=== PATIENT | male | born 1945 | race Caucasian/White ===

== ENCOUNTER 2016-10-19 07:23 | Outpatient (CLI) | payer MEDICARE, OTHER ==
[2016-10-19 10:27] LABS: BASOPHILS # (AUTO) 0.1 10^3/uL (0.0-0.1); BASOPHILS % (AUTO) 1.3 %; EOSINOPHILS # (AUTO) 0.2 10^3/uL (0.0-0.7); EOSINOPHILS % (AUTO) 3.1 %; HCT - HEMATOCRIT 41.6 % (42.0-52.0); HGB - HEMOGLOBIN 14.2 g/dL (14.0-18.0); LYMPHOCYTES # (AUTO) 1.6 10^3/uL (1.5-3.5); LYMPHOCYTES % (AUTO) 26.1 %; MEAN CORPUSCULAR HEMOGLOBIN 30.1 pg (27.0-31.0); MEAN CORPUSCULAR VOLUME 88.4 fL (80.0-94.0); MEAN PLATELET VOLUME 10.4 fL (7.4-11.4); MONOCYTES # (AUTO) 0.6 10^3/uL (0.0-1.0); MONOCYTES % (AUTO) 10.4 %; NEUTROPHILS # (AUTO) 3.5 10^3/uL (1.5-6.6); NEUTROPHILS % (AUTO) 59.1 %; NUCLEATED RED BLOOD CELLS AUTO 0.1 /100WBC; RED BLOOD COUNT 4.71 10^6/uL (4.70-6.10)
[2016-10-19 10:34] LABS: ALBUMIN/GLOBULIN RATIO 1.5 (1.0-2.2); BILIRUBIN,TOTAL 0.8 mg/dL (0.2-1.0); BUN - BLOOD UREA NITROGEN 18 mg/dL (6-20); CALCIUM 9.4 mg/dL (8.5-10.3); CARBON DIOXIDE - CO2 29 mmol/L (21-32); CHLORIDE 102 mmol/L (101-111); CHOL/HDL RATIO 3.8 (<5.0); CHOLESTEROL 164 mg/dL; CREATININE 1.1 mg/dL (0.6-1.2); GFR - MDRD 66 (>89); GLUCOSE 107 mg/dL (70-100); HDL CHOLESTEROL 43 mg/dL; LDL/HDL RATIO 1.8 (<3.6); POTASSIUM 4.2 mmol/L (3.5-5.0); SODIUM 138 mmol/L (135-145); TRIGLYCERIDES 219 mg/dL; URIC ACID 7.3 mg/dL (2.6-7.2); VLDL CHOLESTEROL 44 mg/dL
== END 2016-10-19 07:24 | disposition home or self-care (01) ==
LOC: LAB.F 07:23
PROVIDERS: ATTEND Family Medicine
DX: E78.5 Hyperlipidemia, unspecified (principal); M10.9 Gout, unspecified; J34.89 Other specified disorders of nose and nasal sinuses
CPT/HCPCS: 36415; 80053; 80061; 84550; 85025

== ENCOUNTER 2017-04-06 07:29 | Outpatient (CLI) | payer MEDICARE, OTHER ==
[2017-04-06 10:58] LABS: BILIRUBIN,URINE NEGATIVE (NEGATIVE); GLUCOSE, URINE (UA) NEGATIVE (NEGATIVE); KETONES,URINE (UA) NEGATIVE (NEGATIVE); LEUKOCYTE ESTERASE, URINE NEGATIVE (NEGATIVE); NITRITE,URINE NEGATIVE (NEGATIVE); OCCULT BLOOD,URINE NEGATIVE (NEGATIVE); PH,URINE 6.5 PH (5.0-7.5); PROTEIN,URINE NEGATIVE (NEGATIVE); UROBILINOGEN,URINE 0.2 (NORMAL) E.U./dL (NORMAL)
[2017-04-06 11:00] LABS: CLARITY,URINE CLEAR (CLEAR)
[2017-04-06 11:10] LABS: ALBUMIN 4.1 g/dL (3.2-5.5); ALBUMIN/GLOBULIN RATIO 1.5 (1.0-2.2); ALKALINE PHOSPHATASE 39 IU/L (42-121); ALT ALANINE AMINOTRANSFERASE 80 IU/L (10-60); AST ASPARTATE AMINOTRANSFERASE 39 IU/L (10-42); BUN - BLOOD UREA NITROGEN 22 mg/dL (6-20); CALCIUM 9.2 mg/dL (8.5-10.3); CARBON DIOXIDE - CO2 27 mmol/L (21-32); CHLORIDE 99 mmol/L (101-111); CHOLESTEROL 190 mg/dL; CREATININE 1.3 mg/dL (0.6-1.2); GFR - MDRD 54 (>89); GLUCOSE 105 mg/dL (70-100); HDL CHOLESTEROL 38 mg/dL; LDL CHOLESTEROL,CALCULATED 90 mg/dL; LDL/HDL RATIO 2.4 (<3.6); SODIUM 136 mmol/L (135-145); TOTAL PROTEIN 6.8 g/dL (6.7-8.2); VLDL CHOLESTEROL 62 mg/dL
[2017-04-06 11:20] LABS: HB2 TOTAL 15.2 g/dL; HEMOGLOBIN A1C 0.57 g/dL; HEMOGLOBIN A1C % 5.6 % (4.6-6.2)
[2017-04-06 11:29] LABS: BACTERIA,URINE Rare /HPF (None Seen); RBC,URINE 0-5 /HPF (0-5); SQUAMOUS EPITHELIAL CELL,UR NONE SEEN (<= Few)
== END 2017-04-06 07:30 | disposition home or self-care (01) ==
LOC: LAB.F 07:29
PROVIDERS: ATTEND Family Medicine
DX: R10.9 Unspecified abdominal pain (principal); R73.01 Impaired fasting glucose; I10 Essential (primary) hypertension; Z12.5 Encounter for screening for malignant neoplasm of prostate; E78.5 Hyperlipidemia, unspecified; I25.10 Atherosclerotic heart disease of native coronary artery without angina pectoris; M10.9 Gout, unspecified
CPT/HCPCS: 36415; 80053; 80061; 81001; 83036; G0103; 83721; 84153

== ENCOUNTER 2017-05-14 06:18 | Emergency (ER) | payer MEDICARE, OTHER ==
--- NOTE | 2017-05-14 06:24 | ED Physician Documentation ---
PD HPI URI - History of Present Illness Similar symptoms before: Other (2 years ago had similar illness improved with unnamed antibiotic.) Recently seen: Other (last seen by [place] about one month ago for routine follow up.) <Cruz Easton - Last Filed: 05/14/17 08:09> - History obtained from History obtained from: Patient - History of Present Illness Timing - onset: How many days ago (4) Timing details: Gradual onset, Still present Associated symptoms: Fever, Nasal congestion, Rhinorrhea, Sore throat, Productive cough Contributing factors: No: Sick contact Similar symptoms before: Has not had sx before Recently seen: Not recently seen <Austen Sweeney - Last Filed: 05/16/17 06:22> - Stated complaint Stated Complaint: SORE THROAT/COUGH - Additional information Additional information: Patient is a 71 year old male with a history of htn who is presenting to the emergency department for fever, cough and sore throat. Patient states that his symptoms have been going on for the last 4 days or so. patient states that he has had a runny nose and sore throat. Patient felt ok yesterday but the symptoms came back today. Patient states tht he felt warm but he did not take his temperature. (Austen Sweeney) Review of Systems Constitutional: reports: Fever, Chills, Myalgias Eyes: reports: Reviewed and negative Ears: reports: Reviewed and negative Nose: reports: Rhinorrhea / runny nose, Congestion Throat: denies: Oral lesions / sores Cardiac: denies: Chest pain / pressure, Palpitations Respiratory: reports: Cough. denies: Dyspnea, Wheezing GI: denies: Nausea, Vomiting : reports: Reviewed and negative Skin: denies: Rash, Lesions Neurologic: denies: Generalized weakness, Focal weakness Immunocompromised: denies: Immunocompromised <Austen Sweeney - Last Filed: 05/16/17 06:22> PD PAST MEDICAL HISTORY <Cruz Easton - Last Filed: 05/14/17 08:09> - Past Medical History Cardiovascular: Hypertension, High cholesterol, Coronary artery disease Musculoskeletal: Gout - Past Surgical History Past Surgical History: Yes General: Colonoscopy Cardiovascular: Coronary stent HEENT: Cataracts - Social History Does the pt smoke?: No Smoking Status: Never smoker Does the pt drink ETOH?: Yes Does the pt have substance abuse?: No - Immunizations Immunizations are current?: Yes - POLST Patient has POLST: No <Austen Sweeney - Last Filed: 05/16/17 06:22> - Present Medications Home Medications: Ambulatory Orders Medication Instructions Recorded Confirmed Aspirin [Aspir 81] 81 mg PO DAILY 09/19/13 10/06/14 Losartan [Cozaar] 100 mg PO DAILY 09/19/13 10/06/14 hydroCHLOROthiazide 25 mg PO DAILY 09/19/13 10/06/14 [Hydrochlorothiazide] Colchicine [Colcrys] 0.6 mg PO Q2H PRN #8 tablet 10/06/14 Multivitamin [Multivitamins] 1 cap DAILY 10/06/14 10/06/14 [place]-3 Fatty Acids/Fish Oil [Fish 1 tab BID 10/06/14 10/06/14 Oil 1,000 mg Capsule] Metoprolol Tartrate 100 mg DAILY 11/20/15 11/20/15 Methocarbamol [Robaxin] 500 mg PO Q6H PRN #25 tablet 11/21/15 Naproxen 375 mg PO BID #20 tablet 11/21/15 Oxycodone HCl/Acetaminophen 1 each PO Q6H PRN #20 tablet 11/21/15 [Percocet 5-325 mg Tablet] Azithromycin [Zithromax] 250 mg PO DAILY #6 tablet 05/14/17 - Allergies Allergies/Adverse Reactions: Allergies Allergy/AdvReac Type Severity Reaction Status Date / Time No Known Drug Allergies Allergy Verified 05/14/17 06:31 PD ED PE NORMAL - Vitals Vital signs reviewed: Yes (febrile, tachy and hypertensive) - General General: Alert and oriented X 3, No acute distress, Well developed/nourished - HEENT HEENT: Atraumatic, PERRL, EOMI, Moist mucous membranes, Other (right TM is flat with mild erythema left is clear. Pharynx is with drainage from the right and not much inflamation ) - Respiratory Respiratory: No respiratory distress, Other (scattered wheezes and rhonchi) - Back Back: No CVA TTP, No spinal TTP - Derm Derm: Normal color, Warm and dry, No rash - Neuro Neuro: Alert and oriented X 3, No motor deficit, Normal speech Eye Opening: Spontaneous Motor: Obeys Commands Verbal: Oriented GCS Score: 15 - Psych Psych: Normal mood, Normal affect <Cruz Easton - Last Filed: 05/14/17 08:09> - Vitals Vital signs reviewed: Yes - General General: Alert and oriented X 3 - HEENT HEENT: Atraumatic, PERRL - Neck Neck: Supple, no meningeal sign - Cardiac Cardiac: RRR - Abdomen Abdomen: Soft - Derm Derm: Normal color, Warm and dry - Extremities Extremities: No deformity, No calf tenderness / cord - Neuro Neuro: Alert and oriented X 3, No motor deficit, Normal speech Eye Opening: Spontaneous <Austen Sweeney - Last Filed: 05/16/17 06:22> PD ED PE EXPANDED - HEENT HEENT: Nasal congestion, Rhinorrhea, Moist mucous membranes - Respiratory Respiratory: Rhonchi, Right upper lobe, Left upper lobe. No: Labored <Austen Sweeney - Last Filed: 05/16/17 06:22> Results - Rads (name of study) 2 view chest Radiology: Prelim report reviewed (Impression: No acute cardiopulmonary abnormality.), EMP read indepedently, See rad report <Cruz Easton - Last Filed: 05/14/17 08:09> - Vitals Vitals: Oxygen O2 Source Room air - Labs Labs: Microbiology 05/14/17 06:30 Group A Strep Throat Culture - Final Throat MIXED OROPHARYNGEAL OWEN PRESENT. NO BETA STREP PRESENT IN CULTURE. Laboratory Tests 05/14/17 05/14/17 06:30 06:30 Influenza A (Rapid) Negative Influenza B (Rapid) Negative Influenza Types A,B Ag - Group A Strep Rapid Negative PD MEDICAL DECISION MAKING - ED course Complexity details: reviewed old records, reviewed results, re-evaluated patient , considered differential, d/w patient <RustamCruz Alyssa - Last Filed: 05/14/17 08:09> - ED course Complexity details: reviewed old records, reviewed results, re-evaluated patient , considered differential, d/w patient <Austen Sweeney - Last Filed: 05/16/17 06:22> - ED course ED course: 71-year-old male care turned over to me from Dr. Sweeney at shift change has cough congestion bringing up yellow-green phlegm low-grade fever and OM on exam. He does have some wheezing and rhonchi on lung exam. He has been treated as above and in addition he is administered DuoNeb treatment and we will place him on some antibiotic.Chest x-ray is clear (Cruz Easton) patient was seen and examined at bedside. rapid strep and flu swab were performed. chest x-ray was ordered. patient was treated with decadron, toradol , tylenol and tessalon. patient was signed over to Dr. Easton pending evaluation and disposition. (Austen Sweeney) Departure <Cruz Easton - Last Filed: 05/14/17 08:09> <Austen Sweeney - Last Filed: 05/16/17 06:22> - Departure Disposition: 01 Home, Self Care Clinical Impression: Otitis media Qualifiers: Otitis media type: suppurative Chronicity: acute Laterality: right Recurrence: not specified as recurrent Spontaneous tympanic membrane rupture: without spontaneous rupture Qualified Code(s): H66.001 - Acute suppurative otitis media without spontaneous rupture of ear drum, right ear Condition: Stable Instructions: ED Otitis Media Acute Adult Follow-Up: Pancho Hilliard MD [Primary Care Provider] - Prescriptions: Azithromycin [Zithromax] 250 mg PO DAILY #6 tablet Discharge Date/Time: 05/14/17 08:15
[2017-05-14] MEDS ORDERED: ACETAMINOPHEN 500 MG TABLET PO STA (06:31)
[2017-05-14] MEDS ORDERED: DEXAMETHASONE 10 MG/ML VIAL PO STA (06:31)
[2017-05-14] MEDS ORDERED: KETOROLAC 15 MG/ML VIAL IM STA (06:31)
[2017-05-14] MEDS ORDERED: BENZONATATE 100 MG CAPSULE PO STA (06:31)
--- NOTE | 2017-05-14 07:20 | XRAY Preliminary Report ---
Exam: XR CHEST 2 VIEW X-RAY IMPRESSION: No acute cardiopulmonary abnormality. [facility] SITE ID: [id number]
--- NOTE | 2017-05-14 07:20 | XRAY Report ---
EXAM: CHEST RADIOGRAPHY EXAM DATE: 05/14/2017 07:04 AM. CLINICAL HISTORY: Fever, cough. COMPARISON: 07/13/2011. TECHNIQUE: 2 views. FINDINGS: Lungs/Pleura: No focal opacities evident. No pleural effusion. No pneumothorax. Normal volumes. Mediastinum: Heart and mediastinal contours are unremarkable. Other: There are mild degenerative disk changes of the thoracic spine. No acute osseous abnormality. IMPRESSION: No acute cardiopulmonary abnormality. [facility] Referring Provider Line: [phone] SITE ID: [id number]
[2017-05-14 07:47] VITALS: BP 139/72
[2017-05-14] MEDS ORDERED: IPRATROPIUM/ALBUTEROL 3 ML NEB INH STA (07:47)
== END 2017-05-14 08:15 | disposition home or self-care (01) ==
LOC: ED 06:18
DX: H66.001 Acute suppurative otitis media without spontaneous rupture of ear drum, right ear (principal); R06.2 Wheezing; I10 Essential (primary) hypertension
CPT/HCPCS: 71046; 87070; 87275; 87276; 87430; 94640; 96372; 99283; A9270

== ENCOUNTER 2022-12-28 15:34 | Emergency (ER) | payer MEDICARE, OTHER ==
[2022-12-28 15:47] VITALS: BP 160/60; O2SAT 100
--- NOTE | 2022-12-28 15:59 | ED Physician Documentation ---
History of Present Illness - Stated complaint Stated Complaint: POST OP SWELLING/ - Chief complaint Chief Complaint: General - History obtained from History obtained from: Patient - Additonal information Additional information: 77-year-old gentleman had a TAVR 4 days ago. The surgery was complicated by bleeding in the groin and he presents today with significant swelling and bruising of his testicular area. He is not short of breath and has no chest pain. PD PAST MEDICAL HISTORY - Past Medical History Past Medical History: Yes Cardiovascular: Hypertension, High cholesterol, Coronary artery disease Respiratory: None Neuro: None Endocrine/Autoimmune: None GI: None : None HEENT: None Psych: None Musculoskeletal: Gout Derm: None - Past Surgical History Past Surgical History: Yes General: Colonoscopy Cardiovascular: Coronary stent, Valve replacement HEENT: Cataracts - Present Medications Home Medications: Ambulatory Orders Medication Instructions Recorded Confirmed Aspirin [Aspir 81] 81 mg PO DAILY 09/19/13 10/06/14 Losartan [Cozaar] 100 mg PO DAILY 09/19/13 10/06/14 hydroCHLOROthiazide 25 mg PO DAILY 09/19/13 10/06/14 [Hydrochlorothiazide] Colchicine [Colcrys] 0.6 mg PO Q2H PRN #8 tablet 10/06/14 Multivitamin [Multivitamins] 1 cap DAILY 10/06/14 10/06/14 [place]-3 Fatty Acids/Fish Oil [Fish 1 tab BID 10/06/14 10/06/14 Oil 1,000 mg Capsule] Metoprolol Tartrate 100 mg DAILY 11/20/15 11/20/15 Naproxen 375 mg PO BID #20 tablet 11/21/15 Oxycodone HCl/Acetaminophen 1 each PO Q6H PRN #20 tablet 11/21/15 [Percocet 5-325 mg Tablet] methocarbamoL [Robaxin] 500 mg PO Q6H PRN #25 tablet 11/21/15 Azithromycin [Zithromax] 250 mg PO DAILY #6 tablet 05/14/17 - Allergies Allergies/Adverse Reactions: Allergies Allergy/AdvReac Type Severity Reaction Status Date / Time Iodinated Contrast Media Allergy Hives Verified 12/28/22 15:38 - Social History Does the pt smoke?: No Smoking Status: Never smoker Does the pt drink ETOH?: Yes Does the pt have substance abuse?: No - Immunizations Immunizations are current?: Yes - POLST Patient has POLST: No PD ED PE NORMAL - Vitals Vital signs reviewed: Yes - General General: Alert and oriented X 3, No acute distress - Cardiac Cardiac: RRR, Other (2 out of 6 decrescendo systolic murmur) - Respiratory Respiratory: No respiratory distress, Other (Mild expiratory wheezes at the bases) - Abdomen Abdomen: Non tender - Extremities Extremities: Other (The right groin and around to the buttock and into the testicles is bruised and swollen but no tenderness. Distal pedal pulses in the right leg are normal.) - Neuro Neuro: Alert and oriented X 3, Normal speech Results - Vitals Vitals: Vital Signs - 24 hr 12/28/22 15:38 Temperature 36.5 C Heart Rate 71 Respiratory 16 Rate Blood Pressure 160/60 H O2 Saturation 100 Oxygen O2 Source Room air - Labs Labs: Laboratory Tests 12/28/22 16:29 Hgb 10.5 L Hct 32.5 L PD Medical Decision Making - ED course ED course: He has subcutaneous bleeding but vascular status seems good with good pedal pulses and does not appear fluid overloaded otherwise. Conservative care advised. H&H acceptable. Departure - Departure Disposition: 01 Home, Self Care Clinical Impression: Postoperative haemorrhage Condition: Good Record reviewed to determine appropriate education?: Yes Comments: You were seen today for postoperative bleeding after your TAVR, this is more bleeding than normal but there is nothing here concerning for an ongoing severe vascular injury nor heart failure. For your records, your hemoglobin today was 10.5, hematocrit 32.5. Follow-up with your manufacturer agent on Sunday as scheduled. Return for new or worsening symptoms. You can use Tylenol and heat packs for the pain. Forms: PCP List Discharge Date/Time: 12/28/22 16:48
[2022-12-28 16:39] LABS: HCT - HEMATOCRIT 32.5 % (42.0-52.0); HGB - HEMOGLOBIN 10.5 g/dL (14.0-18.0)
== END 2022-12-28 16:48 | disposition home or self-care (01) ==
LOC: ED 15:34
DX: L76.22 Postprocedural hemorrhage of skin and subcutaneous tissue following other procedure (principal); I10 Essential (primary) hypertension; E78.00 Pure hypercholesterolemia, unspecified; Z79.82 Long term (current) use of aspirin; Z79.899 Other long term (current) drug therapy
CPT/HCPCS: 36415; 85014; 85018; 99283

== ENCOUNTER 2023-05-18 18:04 | Emergency (ER) | payer MEDICARE, OTHER ==
[2023-05-18 18:23] VITALS: BP 166/79; O2SAT 99
--- NOTE | 2023-05-18 18:32 | ED Physician Documentation ---
History of Present Illness - Stated complaint Stated Complaint: LT FOOT SWOLLEN - Chief complaint Chief Complaint: Wound - History obtained from History obtained from: Patient - History of Present Illness Timing: Today Pain level max: 2 Pain level now: 2 - Additonal information Additional information: Patient is a 77-year-old male who states he got home and there was a blister underneath his second toe today. He states that it popped and decided to come in for evaluation as he had a TAVR about 6 months ago and was concerned about infection. No redness. No swelling. Nothing makes it better or worse. No fevers. No chills. No myalgias. Review of Systems Constitutional: denies: Fever, Chills PD PAST MEDICAL HISTORY - Past Medical History Cardiovascular: Hypertension, High cholesterol, Coronary artery disease Respiratory: None Neuro: None Endocrine/Autoimmune: None GI: None : None HEENT: None Psych: None Musculoskeletal: Gout Derm: None - Past Surgical History Past Surgical History: Yes General: Colonoscopy Cardiovascular: Coronary stent, Valve replacement HEENT: Cataracts - Present Medications Home Medications: Ambulatory Orders Medication Instructions Recorded Confirmed Aspirin [Aspir 81] 81 mg PO DAILY 09/19/13 10/06/14 Losartan [Cozaar] 100 mg PO DAILY 09/19/13 10/06/14 hydroCHLOROthiazide 25 mg PO DAILY 09/19/13 10/06/14 [Hydrochlorothiazide] Colchicine [Colcrys] 0.6 mg PO Q2H PRN #8 tablet 10/06/14 Multivitamin [Multivitamins] 1 cap DAILY 10/06/14 10/06/14 [place]-3 Fatty Acids/Fish Oil [Fish 1 tab BID 10/06/14 10/06/14 Oil 1,000 mg Capsule] Metoprolol Tartrate 100 mg DAILY 11/20/15 11/20/15 Naproxen 375 mg PO BID #20 tablet 11/21/15 Oxycodone HCl/Acetaminophen 1 each PO Q6H PRN #20 tablet 11/21/15 [Percocet 5-325 mg Tablet] methocarbamoL [Robaxin] 500 mg PO Q6H PRN #25 tablet 11/21/15 Azithromycin [Zithromax] 250 mg PO DAILY #6 tablet 05/14/17 Bacitracin Zinc Oint 1 applic TOP BID #1 each 05/18/23 - Allergies Allergies/Adverse Reactions: Allergies Allergy/AdvReac Type Severity Reaction Status Date / Time Iodinated Contrast Media Allergy Hives Verified 12/28/22 15:38 - Social History Does the pt smoke?: No Smoking Status: Never smoker Does the pt drink ETOH?: Yes Does the pt have substance abuse?: No - Immunizations Immunizations are current?: Yes - POLST Patient has POLST: No PD ED PE NORMAL - Vitals Vital signs reviewed: Yes - General General: Alert and oriented X 3, No acute distress - Derm Derm: Warm and dry - Extremities Extremities: Other (L foot - There is a ruptured blister underneath the first and second toe, webspace. No erythema. Clear drainage.) - Neuro Neuro: Alert and oriented X 3 - Psych Psych: Normal mood, Normal affect Results - Vitals Vitals: Vital Signs - 24 hr 05/18/23 18:12 Temperature 36.7 C Heart Rate 64 Respiratory 17 Rate Blood Pressure 166/79 H O2 Saturation 99 Oxygen O2 Source Room air PD Medical Decision Making - ED course Complexity details: considered differential, d/w patient ED course: Patient with a ruptured blister, does not appear infected. Bacitracin applied. Bandage applied. Will continue wound care at home. Will monitor for signs of infection. Patient counseled regarding signs and symptoms for which I believe and urgent re-evaluation would be necessary. Patient with good understanding of and agreement to plan and is comfortable going home at this time This document was made in part using voice recognition software. While efforts are made to proofread this document, sound alike and grammatical errors may occur. Departure - Departure Disposition: 01 Home, Self Care Clinical Impression: Blister of foot without infection Qualifiers: Encounter type: initial encounter Laterality: left Qualified Code(s): S90.822A - Blister (nonthermal), left foot, initial encounter Condition: Good Instructions: ED Blister Follow-Up: MENDEZ BOWMAN MD [Primary Care Provider] - Within 1 week (for wound check ) Prescriptions: Bacitracin Zinc Oint 1 applic TOP BID #1 each Comments: Your prescription was sent to [facility] in [place]. You can use antibiotic ointment twice a day while the blister heals. Please follow-up with your doctor for a wound check in 1 week. Return for redness, swelling or drainage from the wound. Forms: PCP List Discharge Date/Time: 05/18/23 18:45
[2023-05-18] MEDS: BACITRACIN ZINC OINT 1 PACKET TOP STA (18:42)
== END 2023-05-18 18:45 | disposition home or self-care (01) ==
LOC: ED 18:04
DX: S90.822A Blister (nonthermal), left foot, initial encounter (principal); X58.XXXA Exposure to other specified factors, initial encounter
CPT/HCPCS: 99282; A9270